=== PATIENT | female | born 1995 | race Caucasian/White ===

== ENCOUNTER 2017-01-26 13:13 | Emergency (ER) | payer OTHER ==
[~2017-01-26] VITALS: Ht 149.9 cm; Wt 73.2 kg
[2017-01-26 13:31] VITALS: Ht 149.9 cm; Wt 73.2 kg
--- NOTE | 2017-01-26 15:28 | ERD ---
ER Documentation Chief Complaint Chief Complaint Pt presents with VB and 4 week preganant X 3 days HPI 21-year-old female who is A0 last menstrual period on December 19 comes in with vaginal bleeding as well as suprapubic pelvic cramping for the past 2-3 days. She reports that she took 3 home test about a week ago that was positive, no further evaluation. She states she has sharp pain that is intermittent, diffuse in the suprapubic and pelvic region, associated with vaginal bleeding or spotting only. She denies any fevers, chills, chest pain, shortness breath. ROS All systems reviewed and are negative except as per history of present illness. PMhx/Soc Medical and Surgical Hx: pt denies Medical Hx, pt denies Surgical Hx History of Surgery: No Anesthesia Reaction: No Hx Neurological Disorder: No Hx Respiratory Disorders: No Hx Cardiac Disorders: No Hx Psychiatric Problems: No Hx Miscellaneous Medical Probl: No Hx Alcohol Use: No Hx Substance Use: No Hx Tobacco Use: No Smoking Status: Never smoker Physical Exam Vitals Vital Signs Date Time Temp Pulse Resp B/P Pulse Ox O2 Delivery O2 Flow Rate FiO2 01/26/17 13:31 98.5 103 18 137/79 97 Physical Exam General: Well-developed, well-nourished. The patient appears in no acute distress. HEENT: Head is normocephalic, atraumatic. No scleral icterus. Neck: Supple. Nontender. Lungs: Clear to auscultation. Normal air movement. Heart: Regular rate and rhythm. S1 and S2 are normal. No murmurs, gallops, or rubs. Abdomen: Soft, nontender, nondistended. Bowel sounds are normoactive. Extremities: No clubbing or cyanosis. Normal pulses. Moving extremities x 4. No weakness. Neurologic: Alert and oriented 3. No focal deficits. Skin: Normal turgor. No rash or lesions. Result Diagram: 01/26/17 1549 Results 24 hrs Laboratory Tests Test 01/26/17 15:49 White Blood Count 9.410^3/ul Red Blood Count 4.9110^6/ul Hemoglobin 14.8g/dl Hematocrit 42.6% Mean Corpuscular Volume 86.8fl Mean Corpuscular Hemoglobin 30.1pg Mean Corpuscular Hemoglobin Concent 34.7g/dl Red Cell Distribution Width 13.1% Platelet Count 27431^3/UL Mean Platelet Volume 11.6fl Neutrophils % 65.4% Lymphocytes % 26.3% Monocytes % 6.8% Eosinophils % 1.0% Basophils % 0.3% Nucleated Red Blood Cells % 0.0/100WBC Neutrophils # 6.210^3/ul Lymphocytes # 2.510^3/ul Monocytes # 0.610^3/ul Eosinophils # 0.110^3/ul Basophils # 0.010^3/ul Nucleated Red Blood Cells # 0.010^3/ul Urine Color YELLOW Urine Clarity CLEAR Urine pH 7.0 Urine Specific Oral 1.016 Urine Ketones NEGATIVEmg/dL Urine Nitrite NEGATIVEmg/dL Urine Bilirubin NEGATIVEmg/dL Urine Urobilinogen NEGATIVEmg/dL Urine Leukocyte Esterase NEGATIVELeu/ul Urine Microscopic RBC 1/HPF Urine Microscopic WBC 2/HPF Urine Squamous Epithelial Cells FEW/HPF Urine Hemoglobin 2+mg/dL Urine Glucose NEGATIVEmg/dL Urine Total Protein NEGATIVEmg/dl Procedures/MDM ED COURSE: MEDICAL DECISION MAKIN-year-old female comes in with home positive test complaining of vaginal bleeding as well as pelvic pain. Differential diagnosis includes early , threatened , missed , ectopic , ovarian cyst , PID, cervicitis, and among others. Patient has a single live intrauterine , no pole seen likely due to being early, she is 5 weeks and 2 days. There are no adnexal masses. Her type and Rh is O+, no indication for RhoGam. The patient will be given instructions to recheck with her OB by the end of this week. Departure Diagnosis: Primary Impression: Vaginal bleeding in patient at less than 20 weeks gestation Condition: KEVIN Capone PA-C Jan 26, 2017 15:28
[2017-01-26 16:05] LABS: BASOPHILS % 0.3 % (0.0-2.0); EOSINOPHILS # 0.1 10^3/ul (0.0-0.5); HEMATOCRIT 42.6 % (37.0-47.0); HEMOGLOBIN 14.8 g/dl (12.0-16.0); LYMPHOCYTES # 2.5 10^3/ul (0.8-2.9); LYMPHOCYTES % 26.3 % (15.0-51.0); MEAN CORPUSCULAR HEMOGLOBIN 30.1 pg (29.0-33.0); MEAN CORPUSCULAR HGB CONC 34.7 g/dl (32.0-37.0); MEAN CORPUSCULAR VOLUME 86.8 fl (82.0-101.0); MEAN PLATELET VOLUME 11.6 fl (7.4-10.4); MONOCYTE # 0.6 10^3/ul (0.3-0.9); MONOCYTES % 6.8 % (0.0-11.0); NEUTROPHIL # 6.2 10^3/ul (1.6-7.5); NEUTROPHILS % 65.4 % (39.0-77.0); PLATELET COUNT 194 10^3/UL (140-415); RED BLOOD COUNT 4.91 10^6/ul (4.20-5.40); RED CELL DISTRIBUTION WIDTH 13.1 % (11.5-14.5); WHITE BLOOD COUNT 9.4 10^3/ul (4.8-10.8)
[2017-01-26 16:08] LABS: ADD UMIC YES; UR ASCORBIC ACID NEGATIVE (NEGATIVE); UR BILIRUBIN (Dip) NEGATIVE (NEGATIVE); UR BLOOD (Dip) 2+ mg/dL (NEGATIVE); UR CLARITY CLEAR (CLEAR); UR COLOR YELLOW (YELLOW); UR GLUCOSE (Dip) NEGATIVE (NEGATIVE); UR KETONES (Dip) NEGATIVE (NEGATIVE); UR LEUKOCYTE ESTERASE (Dip) NEGATIVE Leu/ul (NEGATIVE); UR NITRITE (Dip) NEGATIVE (NEGATIVE); UR RBC 1 /HPF (0-5); UR SPECIFIC GRAVITY (Dip) 1.016 (1.003-1.030); UR SQUAMOUS EPITHELIAL CELL FEW /HPF (FEW); UR TOTAL PROTEIN (Dip) NEGATIVE (NEGATIVE); UR UROBILINOGEN (Dip) NEGATIVE (NEGATIVE)
--- NOTE | 2017-01-26 16:38 | RADRPT ---
PROCEDURE: OB Ultrasound. CLINICAL INDICATION: Positive test. Vaginal bleeding. TECHNIQUE: Ultrasound of the pelvis was performed with transabdominal and transvaginal sonography in the axial and sagittal planes. COMPARISON: No prior study is available for comparison. FINDINGS: There is a single intrauterine gestational sac. pole is not visualized. Yolk sac is present. Mean sac diameter is 0.67 cm. Menstrual age by ultrasound dates is 5 weeks 2 days. This indicates an expected date of delivery of 09/26/2017. The right ovary appears normal measuring 2.9 x 1.7 x 2.4 cm. The left ovary appears normal measuring 4.0 x 3.2 x 3.5 cm. Color Doppler and pulsed Doppler sonography demonstrate normal flow to the ovaries. There is no other pelvic mass or free fluid. IMPRESSION: 1. Single intrauterine gestational sac with yolk sac visualized. It is too early to visualize pole. Follow-up ultrasound in 10-14 days is advised. 2. Otherwise unremarkable study. RPTAT: QQ .Dakotah Balderrama MD, MD Date Time Electronically viewed and signed by .Dakotah Balderrama MD, on 01/26/2017 16:38 .R/
[2017-01-26 17:15] VITALS: BP 132/70; PULSE 98; RESP 18; TEMP 98.5
== END 2017-01-26 16:50 | disposition home or self-care (01) ==
LOC: FTE 13:13
DX: O20.9 Hemorrhage in early pregnancy, unspecified (principal); R10.2 Pelvic and perineal pain; Z3A.01 Less than 8 weeks gestation of pregnancy
CPT/HCPCS: 36415; 76801; 76817; 81001; 84702; 85025; 86900; 86901; Z7502

== ENCOUNTER 2017-01-30 21:18 | Emergency (ER) | END 2017-01-31 02:10 | disposition home or self-care (01) ==